=== PATIENT | female | born 1995 | race Caucasian/White ===

== ENCOUNTER 2020-11-20 17:21 | Emergency (ER) | payer MEDICAID ==
[~2020-11-20] VITALS: Ht 165.1 cm; Wt 50.3 kg
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
[2020-11-20] MEDS ORDERED: ACETAMINOPHEN ES 500 MG TABLET ONE (18:01)
[2020-11-20] MEDS ORDERED: CYCLOBENZAPRINE 10 MG TABLET ONE (18:02)
[2020-11-20] MEDS: ACETAMINOPHEN ES 500 MG TABLET PO ONE (18:06)
[2020-11-20] MEDS: CYCLOBENZAPRINE 10 MG TABLET PO ONE (18:06)
[2020-11-20] MEDS ORDERED: CYCL5TAB PO (18:32)
[2020-11-20] MEDS ORDERED: IBUP-1955 PO (18:32)
--- NOTE | 2020-11-20 18:45 | NUR ---
Patient discharged to home in stable condition. Written and verbal after care instructions given. Patient verbalizes understanding of instruction. Mother with patient
[2020-11-20 18:46] VITALS: BP 115/81
== END 2020-11-20 18:49 | disposition home or self-care (01) ==
LOC: EDSEX 17:24 → ER 17:24
DX: S29.012A Strain of muscle and tendon of back wall of thorax, initial encounter (principal); S16.1XXA Strain of muscle, fascia and tendon at neck level, initial encounter; M25.552 Pain in left hip; F41.9 Anxiety disorder, unspecified; Z88.0 Allergy status to penicillin; Z88.1 Allergy status to other antibiotic agents; Z79.899 Other long term (current) drug therapy; V49.59XA Passenger injured in collision with other motor vehicles in traffic accident, initial encounter; Y93.89 Activity, other specified; Y92.488 Other paved roadways as the place of occurrence of the external cause; Y99.8 Other external cause status
CPT/HCPCS: 73502